=== PATIENT | female | born 1945 | race Caucasian/White ===

== ENCOUNTER 2016-11-28 17:08 | Emergency (ER) | payer MEDICARE ==
[2016-11-28 17:17] VITALS: BP 137/73
--- NOTE | 2016-11-28 17:21 | UC ---
Throat Pain/Nasal Andrea HPI - HPI Summary HPI Summary: 71 year old female presents with fever, sore throat and chills. - History of Current Complaint Stated Complaint: FEVER,ST,EAR PAIN Time Seen by Provider: 11/28/16 17:15 - Allergies/Home Medications Allergies/Adverse Reactions: Allergies Allergy/AdvReac Type Severity Reaction Status Date / Time No Known Drug Allergy Allergy None Verified 09/06/13 22:53 PMH/Surg Hx/FS Hx/Imm Hx - Surgical History Surgical History: Yes Surgery Procedure, Year, and Place: GALLBLADDER. THORN REMOVED FROM FOOT. HEART CATH NO STENTING - Social History Alcohol Use: None Substance Use Type: None Smoking Status (MU): Never Smoked Tobacco Household Exposure Type: Cigarettes - Immunization History Most Recent Influenza Vaccination: Fall 2012 Most Recent Tetanus Shot: 2008 Most Recent Pneumonia Vaccination: 2008 Review of Systems Constitutional: Negative Skin: Negative Eyes: Negative ENT: Ear Ache - LEFT EAR, Nasal Discharge, Sinus Congestion, Sinus Pain/ Tenderness Respiratory: Negative Cardiovascular: Negative Gastrointestinal: Negative Genitourinary: Negative Motor: Negative Neurovascular: Negative Musculoskeletal: Negative Neurological: Negative Psychological: Negative All Other Systems Reviewed And Are Negative: Yes Physical Exam Triage Information Reviewed: Yes Eye Exam: Normal ENT Exam: Normal ENT: Positive: Pharyngeal erythema, Nasal congestion, Other: - LEFT EAR EXTERNAL CANAL ERYTHEMA Dental Exam: Normal Neck exam: Normal Neck: Positive: 1 Respiratory Exam: Normal Cardiovascular Exam: Normal Abdominal Exam: Normal Musculoskeletal Exam: Normal Neurological Exam: Normal Psychological Exam: Normal Skin Exam: Normal Throat Pain/Nasal Course/Dx - Differential Dx/Diagnosis Provider Diagnoses: SINUSITIS. LEFT EAR PAIN Discharge - Discharge Plan Condition: Stable Disposition: HOME Prescriptions: Amoxicillin/Clavulanate TAB* [Augmentin TAB 875*] 875 mg PO BID #20 tab Magic M W2 Kenneth/Maal/Nyst/Lido* 15 ml SWISH SPIT QID #120 ml Methylprednisolone [Medrol Dosepak 4 MG*] 4 mg PO .SEE SUZANNE INSTRUCTION #21 tab Neomyc/Polym/HC 1% OTIC SUSP* [Cortisporin Otic Susp 1%*] 4 drop LEFT EAR QID # 1 btl Patient Education Materials: Pharyngitis (ED) Referrals: Sheldon Lujan MD [Primary Care Provider] - If Needed
== END 2016-11-28 18:00 | disposition home or self-care (01) ==
LOC: UCEAST 17:08
DX: J32.9 Chronic sinusitis, unspecified (principal); H92.02 Otalgia, left ear; R50.9 Fever, unspecified
CPT/HCPCS: 87651; 99212; G0463